=== PATIENT | female | born 1960 | race Caucasian/White ===

== ENCOUNTER 2022-08-05 08:19 | Day surgery (SDC) | payer OTHER, SELFPAY ==
--- NOTE | 2022-07-31 14:22 | P.CONAN_ITS ---
Documented by User: Danielle Marion NP 07/31/22 14:31 HPI - Anesthesia Eval Consult details Narrative: 61yo F for Upper Endoscopy [facility] Past Medical History Medical History Keller esophagus GERD (gastroesophageal reflux disease) HTN (hypertension) Surgical History Surgical History H/O colonoscopy H/O dilation and curettage H/O esophagogastroduodenoscopy H/O wisdom tooth extraction Hx of appendectomy S/P partial hysterectomy Social History Social History Advance Directives: No Advance Directives Information Provided: Yes Meds Allergies Allergy/AdvReac Type Severity Reaction Status Date / Time amoxicillin [From Augmentin] Allergy Unknown Unknown Verified 07/31/22 14:23 clavulanic acid Allergy Unknown Unknown Verified 07/31/22 14:23 [From Augmentin] Sulfa (Sulfonamide Allergy Unknown Unknown Verified 07/31/22 14:23 Antibiotics) Home Medications Medication Instructions Recorded Confirmed Last Taken Type amlodipine 5 mg-benazepril 20 mg 1 cap PO DAILY 07/31/22 07/31/22 Unknown History capsule omeprazole 40 mg capsule,delayed 40 mg PO DAILY 07/31/22 07/31/22 Unknown History release aimyzftyg-ydedtcosm-oaengvcc-scop tab 07/31/22 Unknown History 16.2 mg-0.1037 mg-0.0194 mg tablet () pimecrolimus 1 % topical cream 1 appl topical BID 07/31/22 07/31/22 Unknown History (Elidel) Exam Exam Date and Time: July 31, 2022 142 Assessment and Plan Assessment Anesthesia Assessment: Chart Reviewed Documented by User: Rosenda Dunne MD 08/05/22 08:58 [facility] Past Medical History Medical History Keller esophagus GERD (gastroesophageal reflux disease) HTN (hypertension) Family History Family history of problems with anesthesia: No Surgical History Surgical History H/O colonoscopy H/O dilation and curettage H/O esophagogastroduodenoscopy H/O wisdom tooth extraction Hx of appendectomy S/P partial hysterectomy History of Problems with Anesthesia: No Social History Social History Advance Directives: No Advance Directives Information Provided: Yes Meds Allergies Allergy/AdvReac Type Severity Reaction Status Date / Time amoxicillin [From Augmentin] Allergy Unknown Unknown Verified 07/31/22 14:23 clavulanic acid Allergy Unknown Unknown Verified 07/31/22 14:23 [From Augmentin] Sulfa (Sulfonamide Allergy Unknown Unknown Verified 07/31/22 14:23 Antibiotics) Home Medications Medication Instructions Recorded Confirmed Last Taken Type amlodipine 5 mg-benazepril 20 mg 1 cap PO DAILY 07/31/22 07/31/22 Unknown History capsule omeprazole 40 mg capsule,delayed 40 mg PO DAILY 07/31/22 07/31/22 Unknown History release smgnthckh-wudxqtmxm-zcvbztqi-scop tab 07/31/22 Unknown History 16.2 mg-0.1037 mg-0.0194 mg tablet () pimecrolimus 1 % topical cream 1 appl topical BID 07/31/22 07/31/22 Unknown History (Elisen) Exam Airway Mallampati Class: II TM Dist: >3cm Neck ROM: Full Loose/Missing/Broken Teeth: Yes (Top front left had a chip but bonded now. Crowns intact. Denies loose or missing teeth) Heart: RRR Lungs: CTAB Assessment and Plan Final Anesthetic Review Family History of Problems with Anesthesia: No History of Problems with Anesthesia: No NPO: Yes ASA Class: II Final Preanesthetic Review: No Changes in Pt Med Stat, Meds/Allgs Chart Reviewed, Consent Obtained/Reviewed and Anes Risks/Benef Reviewed Patient Risk: Low Procedure Risk: Low Assessment/Block/Sedation in SS: Assess/Block/Sedation-SS Anesthetic Plan Anesthetic Plan: MAC: Disposition: Standard PACU
[2022-08-05 08:42] VITALS: BP 131/68; PULSE 89; RESP 16; TEMP 36.6; O2SAT 99; BMI 30.7
--- NOTE | 2022-08-05 09:47 | MHC.SHP ---
Pre-Procedural Eval Section A Date of Service: 08/05/22 Section B Chief Complaint: GERD.Ekller's esophagus without dysplasia Details of Present Illness: see h&p and addendum, no changes Relevant Family History (Specify if Yes): No Relevant Social History: None Present Medications: see Short Stay Collaborative assessment Medical History: No relevant PMH History of Previous Operations: No relevant previous surgery Allergies: Allergies Allergy/AdvReac Type Severity Reaction Status Date / Time amoxicillin [From Augmentin] Allergy Unknown Unknown Verified 07/31/22 14:23 clavulanic acid Allergy Unknown Unknown Verified 07/31/22 14:23 [From Augmentin] Sulfa (Sulfonamide Allergy Unknown Unknown Verified 07/31/22 14:23 Antibiotics) Review of Systems Sugical H&P ROS: Negative: Constitution, Cardiovascular, Respiratory, Neurological, Psychiatric, Hem-Onc, Allergic/Immunologic, Gastrointestinal, Genitourinary, Musculoskeletal, Integumentary, Endocrine and Eyes/Ears/Nose/Throat Exam Surgical H&P Exam: Normal: HEENT, Normal: Heart, Normal: Lungs, Normal: Extremities, Normal: Abdomen, Normal: Skin and Normal: Neurological Plan Diagnosis/Plan: Unchanged I have reviewed the history and physical and performed a pertinent physical examination on my patient. No changes have occurred unless specified. Time Spent With Patient Time: Total time managing care of this patient today ____ minutes.
--- NOTE | 2022-08-05 10:18 | P.BOP_ITS ---
Brief Operative Note Date of Service: 08/05/22 Pre-op diagnosis: gerd barretts Post-op diagnosis: same Procedure: egd Surgeon: Quentin Romo Anesthesia: MAC Was an Peripheral Vascular Tech used for this Procedure?: No Estimated blood loss (mL): 2 Pathology: other Condition: stable Disposition: PACU
[2022-08-05 10:19] VITALS: BP 96/54; PULSE 81; RESP 18; TEMP 36.2; O2SAT 97
[2022-08-05 10:24] VITALS: BP 104/64; PULSE 83; RESP 18; O2SAT 98
[2022-08-05 10:29] VITALS: BP 103/57; PULSE 90; RESP 18; O2SAT 96
[2022-08-05 10:34] VITALS: BP 108/63; PULSE 79; RESP 18; TEMP 36.7; O2SAT 97
--- NOTE | 2022-08-05 17:16 | OP_ITS ---
DATE OF SERVICE: 08/05/2022 SURGEON: Quentin Romo MD INDICATIONS: Gastroesophageal reflux disease and Keller's esophagus. PREOPERATIVE DIAGNOSIS: POSTOPERATIVE DIAGNOSIS: PROCEDURE PERFORMED: Upper endoscopy with biopsy. ESTIMATED BLOOD LOSS: COMPLICATIONS: ANESTHESIA: Monitored anesthesia care. ASSISTANTS: SPECIMENS: DESCRIPTION OF PROCEDURE: History and physical performed. The risks and benefits of the procedure were explained to the patient. Informed consent was obtained. The patient was placed in the left lateral decubitus position. The Olympus video gastroscope was introduced into the esophagus, stomach, and duodenum. Examination was performed. The scope was removed. She tolerated the procedure well and was taken to recovery in stable condition. FINDINGS: Esophagus: The esophagus showed no esophagitis. Biopsies were obtained from the EG junction. There was a moderate-sized hiatal hernia. Stomach: The stomach showed no evidence of masses, ulcers, or polyps. Antral biopsies were obtained to evaluate for H pylori. Duodenum: The bulb and 2nd portion were normal. Biopsies were obtained to evaluate for any evidence of malabsorption. IMPRESSION: Keller's esophagus, gastroesophageal reflux disease. RECOMMENDATION: Follow up the biopsy results. MD KENYA Blevins/SARTHAK / [id number]
== END 2022-08-05 11:12 | disposition home or self-care (01) ==
PROVIDERS: PCP Internal Medicine; Visit Provider Internal Medicine Gastroenterology
PROC: 0DJ08ZZ Inspection of Upper Intestinal Tract, Via Natural or Artificial Opening Endoscopic (ICD-10-PCS; CPT 43235; principal; 2022-08-05 09:40)
DX: K21.9 Gastro-esophageal reflux disease without esophagitis (principal); K22.70 Barrett's esophagus without dysplasia; K44.9 Diaphragmatic hernia without obstruction or gangrene; I10 Essential (primary) hypertension; Z79.899 Other long term (current) drug therapy; Z88.1 Allergy status to other antibiotic agents; Z88.2 Allergy status to sulfonamides; Z86.16 Personal history of COVID-19
CPT/HCPCS: 43239; 88305; 88342